=== PATIENT | male | born 1950 ===

== ENCOUNTER 2018-11-14 08:06 | Emergency (ER) | payer BC ==
[2018-11-14] MEDS ORDERED: Tetracaine 0.5% OPTH.SOL 4 ML* 1 DROP BTL ONE (08:29)
[2018-11-14] MEDS ORDERED: Fluorescein Sodium TOPICAL* 1 MG TEST STRIP OPHTHALMIC ONE (08:29)
[2018-11-14] MEDS ORDERED: Ibuprofen TAB* 400 MG PO ONE (08:50)
--- NOTE | 2018-11-14 09:40 | ED ---
Throat Pain/Nasal Congestion - HPI Summary HPI Summary: Patient presents with left eye pain, swelling, irritation and photophobia since yesterday. Admits he was working under his car couple of days ago and felt something fall into his eye however he did not have any acute symptoms that day. He is here today as his swelling irritation and photophobia are quite bothersome. He has not tried any remedies to address his pain and swelling other than applying ice. He denies change in vision, headache, fever, chills, neck pain swelling or tenderness. He believes he is up-to-date with his tetanus vaccine (received last Spring) however will double check with his primary care provider - will refrain from further vaccine today. Note: Does not wear contact lenses and does not smoke - History of Current Complaint Chief Complaint: UCEye Time Seen by Provider: 11/14/18 08:22 Hx Obtained From: Patient, Family/Steamfitter Supervisor - - Allergies/Home Medications Allergies/Adverse Reactions: Allergies Allergy/AdvReac Type Severity Reaction Status Date / Time No Known Allergies Allergy Verified 11/14/18 08:28 Home Medications: Home Medications Acetaminophen 325 mg PO Q6HR PRN 11/14/18 [History Confirmed 11/14/18] PMH/Surg Hx/FS Hx/Imm Hx Previously Healthy: Yes Endocrine/Hematology History: Denies: Hx Anticoagulant Therapy, Autoimmune Disease Opthamlomology History: Reports: Hx Vision Problem - presbyopia Denies: Hx Cataracts, Hx Contacts or Glasses, Hx Eye Injury, Hx Eye Prosthesis, Hx Glaucoma, Hx Legally Blind, Hx Macular Degeneration EENT History: Reports: Hx Hearing Aid - Immunization History Immunizations Up to Date: Yes Infectious Disease History: No Infectious Disease History: Reports: Traveled Outside the [place] in Last 30 Days - [place] - Social History Lives: With Family - Alcohol Use: Occasionally Hx Substance Use: No Substance Use Type: Reports: None Hx Tobacco Use: No Smoking Status (MU): Never Smoked Tobacco Review of Systems Constitutional: Negative Positive: Photophobia, Drainage - watery, Erythema. Negative: Blurred Vision, Diplopia ENT: Negative Cardiovascular: Negative Respiratory: Negative Gastrointestinal: Negative Negative: Vomiting, Nausea Positive: no symptoms reported Negative: Rash Negative: Headache Psychological: Normal All Other Systems Reviewed And Are Negative: Yes Physical Exam Triage Information Reviewed: Yes Vital Signs On Initial Exam: Initial Vitals Temp Pulse Resp BP Pulse Ox 98.5 F 60 18 140/88 96 11/14/18 08:29 11/14/18 08:29 11/14/18 08:29 11/14/18 08:29 11/14/18 08:29 Vital Signs Reviewed: Yes Appearance: Positive: Well-Appearing, Pain Distress - lights are out and pt is wearing sunglasses upon entrance to room Skin: Positive: Warm, Skin Color Reflects Adequate Perfusion, Dry - no vesicular lesions about the Left eye or side of face/scalp NOTE: pt had skin lesions cryo'ed earlier this week - they appear to be healing well w/o s/sx infection and are not near eye of concern Head/Face: Positive: Normal Head/Face Inspection Eyes: Positive: MAYTE - pain B/L w/ light exam, Conjunctiva Inflammed, Discharge - watery, Other: - superior palpebrea w/ mild edema; Ocular exam - with light, no obvious FB or injury; with flouresceine and wood's lamp exam, a 2mm abrasion is noted in cornea within cilia and just lateral to pupil - no rust ring, no FB , (-) Siedel sign; edema of mucosa along outer upper inner tissue where he's reporting pain as well - no FB identified ENT: Positive: Pharynx normal, Uvula midline, Other - hearing aids in place B/ L. Negative: Nasal congestion, Nasal drainage, Muffled voice, Hoarse voice Neck: Positive: Supple, Nontender Respiratory/Lung Sounds: Positive: Breath Sounds Present Cardiovascular: Positive: Normal Musculoskeletal: Positive: Normal, Strength/ROM Intact Neurological: Positive: Sensory/Motor Intact, Alert, Oriented to Person Place, Time, CN Intact II-III Psychiatric: Positive: Normal - Deyanira Coma Scale Best Eye Response: 4 - Spontaneous Best Motor Response: 6 - Obeys Commands Best Verbal Response: 5 - Oriented Coma Scale Total: 15 Procedures - Eye Procedure Left Alcaine Drops Administered: No - tetracaine Eye Irrigated w/ Saline (ccs): 2 - see PE for details - pt tolerated well Diagnostics - Vital Signs Vital Signs Temp Pulse Resp BP Pulse Ox 11/14/18 08:29 98.5 F 60 18 140/88 96 - Laboratory Lab Statement: Any lab studies that have been ordered have been reviewed, and results considered in the medical decision making process. Re-Evaluation - Re-Evaluation First Eval Change: Improved - pain improved w/ tetracaine EENT Course/Dx - Diagnoses Provider Diagnoses: Left corneal abrasion Discharge - Sign-Out/Discharge Documenting (check all that apply): Patient Departure All imaging exams completed and their final reports reviewed: No Studies - Discharge Plan Condition: Stable Disposition: HOME Prescriptions: Erythromycin OPTH OINT* [Erythromycin 0.5% OPTH OINT*] 1 applic LEFT EYE QID #1 tube Patient Education Materials: Corneal Abrasion (ED) Referrals: Sage Romero MD [Medical Doctor] - Additional Instructions: Rest, keep eye closed to allow for healing and apply ice in towel for swelling Take ibuprofen 600mg every 6 hours with food as needed for pain Use antibiotic ointment 4 x day for 5 days - wash hands before and after each use Avoid using contact lenses or putting anything else into your eye Follow-up with your ophthomoligist Friday - call to schedule an appointment [facility] phone: [phone] *If worse, you may go to [facility] today or the emergency room - Billing Disposition and Condition Condition: STABLE Disposition: Home
== END 2018-11-14 09:12 | disposition home or self-care (01) ==
LOC: UCEAST 08:06
DX: S05.02XA Injury of conjunctiva and corneal abrasion without foreign body, left eye, initial encounter (principal); W22.8XXA Striking against or struck by other objects, initial encounter; Y93.89 Activity, other specified; Y92.89 Other specified places as the place of occurrence of the external cause; Y99.8 Other external cause status
CPT/HCPCS: 99202; A9270-GY; G0463